=== PATIENT | female | born 1980 | race African-American/Black ===

== ENCOUNTER 2019-04-19 09:24 | Emergency (ER) | payer BC ==
--- NOTE | 2019-04-19 09:52 | ER Document Report ---
ED Syncope and Near Syncope - General Chief Complaint: Syncope Stated Complaint: SYNCOPE/FACE PAIN/HEADACHE/SHOULDER/ARM PAIN Primary Care Provider: SHANA MARK DO [Primary Care Provider] - Follow up as needed Information source: Patient Notes: Patient claims that last night she got overheated was trying to turn the heat to air conditioning opened up the vent felt seeing spots in front of her eyes felt dizzy and then afterwards passed out briefly when she woke up she was on the ground complains now of pain in the left shoulder in the left temporal area of her also in her left elbow. Denies any chest pain shortness of breath or other complaint TRAVEL OUTSIDE OF THE [place] IN LAST 30 DAYS: No - HPI Patient complains to provider of: Fainting Episode witnessed (by whom): Yes Single episoded occurred: yesterday Symptoms prior to episode: Dizziness, Hyperventilation. No: None, Abdominal pain, Back pain, Chest pain, Chills, Diarrhea, Fever, Headache, Lightheaded, Nausea/vomiting, Palpitations, Racing heart, Short of breath, Sweaty, Visual disturbance, Other Position/Activity at time of episode: Activity Quality of pain: Achy. denies: No pain, Burning, Cramping, Dull, Fullness, Pressure, Sharp, Stabbing, Throbbing, Other Severity: Mild Context: Became unresponsive. denies: Almost passed out, Breathing shallow/stopped, Collapsed, Confused after event, [place] faint, Incontinent of stool, Incontinent of urine, Lost consciousness, Lost pulse, Low blood sugar, , Recent immobilization, Recent seizures, Recent travel, Seizure activity observed, Other Injury location: Head, LUE. No: None, Abdomen, Back, Chest, Face, Mouth, Neck, Tongue, LLE, RUE, RLE Current symptoms: None/feels back to normal, Headache. denies: Abdominal pain, Arm pain, Back pain, Breathing difficulty, Chest pain, Chills, Diarrhea, Dizziness, Fever, Lightheaded, Nausea, Neck pain, Shoulder pain, Short of breath, Sweaty, Vomiting, Weakness, Other - Related Data Allergies/Adverse Reactions: No Known Allergies Allergy (Unverified 06/17/15 09:47) Past Medical History - Social History Smoking Status: Unknown if Ever Smoked Family History: None - Past Medical History Cardiac Medical History: Denies: Hx Coronary Artery Disease, Hx Heart Attack, Hx Hypertension Pulmonary Medical History: Denies: Hx Asthma, Hx Bronchitis, Hx COPD, Hx Pneumonia Neurological Medical History: Denies: Hx Cerebrovascular Accident, Hx Seizures Musculoskeletal Medical History: Denies Hx Arthritis Past Surgical History: Denies: Hx Hysterectomy - Immunizations Hx Diphtheria, Pertussis, Tetanus Vaccination: Yes Review of Systems - Review of Systems Constitutional: denies: No symptoms reported, See HPI, Chills, Diaphoresis, Fever, Malaise, Weakness, Other, Weight gain, Weight loss, Recent illness EENT: denies: No symptoms reported, See HPI, Eye pain, Eye discharge, Blurred vision, Tearing, Double vision, Ear pain, Ear discharge, Nose pain, Nose congestion, Nose discharge, Sinus pressure, Sinus discharge, Throat pain, Difficulty swallowing, Throat swelling, Mouth pain, Mouth swelling, Dental problem, Vertigo, Other Cardiovascular: Dizziness. denies: No symptoms reported, See HPI, Chest pain, Palpitations, Heart racing, Orthopnea, Dyspnea, Syncope, Lightheaded, Edema, Other, Paroxysmal Nocturnal Dysp Respiratory: denies: No symptoms reported, See HPI, Cough, Hurts to breathe, Hemoptysis, Short of breath, Sputum, Stridor, Wheezing, Other Gastrointestinal: denies: No symptoms reported, Abdomen distended, Abdominal pain, Diarrhea, Nausea, Vomiting, Constipation, Blood streaked bowels, Poor appetite, Poor fluid intake, Blood in vomit, Black stools, Rectal bleeding, Last bowel movement, Fecal incontinence, Other Neurological/Psychological: Headaches. denies: No symptoms reported, See HPI, Confusion, Dementia, Depression, Hallucinations, Anxiety, Homicidal ideation, Sensory change, Weakness, Gait changes, Loss of power, Paralysis, Seizure, Lost consciousness, Speech impairment, Numbness, Suicidal ideation, Tingling, Tremor, Other -: Yes All other systems reviewed and negative Physical Exam - Vital signs Vitals: Temp Pulse Resp BP Pulse Ox 98.2 F 51 L 20 150/84 H 100 04/19/19 09:28 04/19/19 09:28 04/19/19 09:28 04/19/19 09:28 04/19/19 09:28 Notes: PHYSICAL EXAMINATION: GENERAL: Well-appearing, well-nourished and in no acute distress. HEAD: Pain to palpation over the left temporal area into the upper lateral zygomatic arch., normocephalic. EYES: Pupils equal round and reactive to light, extraocular movements intact, sclera anicteric, conjunctiva are normal. ENT: nares patent, oropharynx clear without exudates. Moist mucous membranes. NECK: Normal range of motion, supple without lymphadenopathy LUNGS: Breath sounds clear to auscultation bilaterally and equal. No wheezes rales or rhonchi. HEART: Regular rate and rhythm without murmurs ABDOMEN: Soft, nontender, normoactive bowel sounds. No guarding, no rebound. No masses appreciated. EXTREMITIES: Normal range of motion, no pitting or edema. No cyanosis. Pain over the left anterior shoulder and left lateral elbow however full range of motion. All other extremities within normal limits with full range of motion. NEUROLOGICAL: No focal neurological deficits. Moves all extremities spon taneously and on command. PSYCH: Normal mood, normal affect. SKIN: Warm, Dry, normal turgor, no rashes or lesions noted. Course - Vital Signs Vital signs: Temp Pulse Resp BP Pulse Ox 98.2 F 51 L 20 150/84 H 100 04/19/19 09:28 04/19/19 09:28 04/19/19 09:28 04/19/19 09:28 04/19/19 09:28 - EKG Interpretation by Me EKG shows normal: Sinus rhythm Rate: Bradycardia When compared to previous EKG there are: Previous EKG unavailable - Transfer of Care Notes: 04/19/19 10:38 Note patient did have initial EKG which showed a bradycardic rate of 51 however patient is a normal blood pressure she is not on any medications. CT of the head x-rays the elbow read as negative by the radiologist shoulder by myself in the absence of radiology shows no fracture dislocation or soft tissue swelling. Did encourage her to follow-up with her regular doctor for placement of a Holter monitor and possible echocardiogram due to the bradycardia however patient is totally asymptomatic with this she is a young healthy otherwise. She has no chest pain shortness of breath had symptoms typical of vasovagal syncope including flushed hyperventilating being dizzy and seeing spots before she pas sed out. Inform her that if she gets worse or pass out again then we she would need a full work-up. 04/19/19 10:39 Discharge - Discharge Clinical Impression: Vaso vagal episode, Multiple contusions Syncope Qualifiers: Syncope type: vasovagal syncope Qualified Code(s): R55 - Syncope and collapse Condition: Stable Disposition: HOME, SELF-CARE Instructions: Syncopal Episode ([facility]), Contusion ([facility]) Additional Instructions: Return if you pass out again get dizzy lightheadedness have chest pain shortness of breath or condition worsens speak with your private doctor for possible Holter monitor placement and/or echo and/or stress test with referral to cardiology. Take Tylenol Motrin for pain return if worse Forms: Return to Work Referrals: SHANA MARK DO [Primary Care Provider] - Follow up as needed
--- NOTE | 2019-04-19 10:29 | RADIOLOGY REPORT (SQ) ---
EXAM DESCRIPTION: CT HEAD WITHOUT COMPLETED DATE/TIME: 04/19/2019 10:14 am REASON FOR STUDY: head injury COMPARISON: None. TECHNIQUE: Axial images acquired through the brain without intravenous contrast. Images reviewed wi th bone, brain and subdural windows. Additional sagittal and coronal reconstructions were generated. Images stored on PACS. All CT scanners at this facility use dose modulation, iterative reconstruction, and/or weight based d osing when appropriate to reduce radiation dose to as low as reasonably achievable (ALARA). [facility]: Dose Right [facility]: CareDose [facility]: Dose Right [facility]: Teradose 4D [facility]: Planbox RADIATION DOSE: CT Rad equipment meets quality standard of care and radiation dose reduction techniq ues were employed. CTDIvol: 53.2 mGy. DLP: 1044 mGy-cm. mGy. LIMITATIONS: None. FINDINGS: There is no acute intracranial hemorrhage, vascular territorial infarct, extra-axial fluid collection, mass effect or midline shift. There is no effacement of cerebral sulci or basal subarac hnoid cisterns. The mckeon-white matter differentiation is preserved. The caliber of the ventricles is concordant with the degree of sulcation. The orbits and globes are intact. The paranasal sinuses and the mastoid air cells are clear. There is no fracture of the calvarium. IMPRESSION: No acute intracranial abnormality. EVIDENCE OF ACUTE STROKE: NO. COMMENT: Quality ID # [id number]: Final reports with documentation of one or more dose reduction techniques (e.g., Automated exposure control, adjustment of the mA and/or kV according to patient size, use of iterative reconstruction technique) TECHNICAL DOCUMENTATION: JOB ID: [id number] [employer]- All Rights Reserved Reading location - IP/workstation name: [email or web address]
--- NOTE | 2019-04-19 10:36 | RADIOLOGY REPORT (SQ) ---
EXAM DESCRIPTION: ELBOW LEFT OVER 2 VIEWS COMPLETED DATE/TIME: 04/19/2019 10:17 am REASON FOR STUDY: fx COMPARISON: None. NUMBER OF VIEWS: Four views. TECHNIQUE: AP, lateral, and both oblique radiographic images acquired of the left elbow. LIMITATIONS: None. FINDINGS: MINERALIZATION: Normal. BONES: No acute fracture or dislocation. Osseous lesion. JOINT: No effusion. SOFT TISSUES: No soft tissue swelling or radiopaque foreign body. OTHER: No other finding. IMPRESSION: No acute osseous abnormality of the left elbow. TECHNICAL DOCUMENTATION: JOB ID: [id number] [employer]- All Rights Reserved Reading location - IP/workstation name: [email or web address]
--- NOTE | 2019-04-19 10:37 | RADIOLOGY REPORT (SQ) ---
EXAM DESCRIPTION: SHOULDER LEFT 2 OR MORE VIEWS COMPLETED DATE/TIME: 04/19/2019 10:17 am REASON FOR STUDY: fx COMPARISON: None. NUMBER OF VIEWS: Three views. TECHNIQUE: Internal rotation, external rotation, and Y view images acquired of the left shoulder. LIMITATIONS: None. FINDINGS: MINERALIZATION: Normal. BONES: No acute fracture. JOINTS: No dislocation. VISUALIZED LUNGS AND RIBS: No pneumothorax or rib fracture. SOFT TISSUES: No soft tissue swelling or radiopaque foreign body. OTHER: No other finding. IMPRESSION: No acute osseous abnormality of the left shoulder. TECHNICAL DOCUMENTATION: JOB ID: [id number] [employer]- All Rights Reserved Reading location - IP/workstation name: [email or web address]
[2019-04-19 10:57] VITALS: BP 122/79
--- NOTE | 2019-04-19 13:35 | EKG REPORT ---
SEVERITY:- NORMAL ECG - SINUS RHYTHM : Confirmed by: Rogelio Banks MD 19-Apr-2019 13:34:55
== END 2019-04-19 10:59 | disposition home or self-care (01) ==
LOC: ER 09:24
DX: R55 Syncope and collapse (principal); R00.1 Bradycardia, unspecified; T14.8XXA Other injury of unspecified body region, initial encounter; X58.XXXA Exposure to other specified factors, initial encounter; M25.512 Pain in left shoulder; R51 Headache; M25.522 Pain in left elbow; R42 Dizziness and giddiness
CPT/HCPCS: 70450; 93005; 93010; 99284

== ENCOUNTER → 2019-06-09 | Outpatient (CLI) | payer BC ==
[2019-06-09 09:40] LABS: GLUCOSE,FASTING 86 mg/dL (<110)
[2019-06-09 10:23] LABS: FASTING GAC 84 mg/dL (<110)
== END ==
LOC: OD 08:18
PROVIDERS: ATTEND Physician Assistant
DX: R55 Syncope and collapse (principal)
CPT/HCPCS: 36415; 82951